=== PATIENT | male | born 1940 | race Caucasian/White ===

== ENCOUNTER 2021-10-28 16:15 | Inpatient (IN) ==
[2021-10-28 18:01] LABS: Basophils # 0.1 K/mcL (0.0-0.2); Basophils % 0.3 %; Hematocrit 52.3 % (37.5-50.1); Hemoglobin 17.4 g/dL (12.9-16.9); Immature Granulocytes % 1.2 % (0-4); Lymphocytes % 3.3 %; Mean Corpuscular HGB Conc 33.3 g/dL (31.6-35.5); Mean Corpuscular Hemoglobin 32.2 pg (28.0-33.3); Mean Corpuscular Volume 96.9 fL (83.0-100.0); Mean Platelet Volume 10.6 fL (9.4-12.4); Monocytes # 1.9 K/mcL (0.0-1.3); Monocytes % 8.5 %; Neutrophils # 19.4 K/mcL (1.6-8.9); Platelet Count 190 K/mcL (140-400); Red Cell Distribution Width 14.4 % (11.5-14.5); Segmented Neutrophils % 86.7 %; White Blood Count 22.4 K/mcL (4.3-11.1)
[2021-10-28 18:09] LABS: INR 1.3
[2021-10-28 18:10] LABS: Lymphocytes # 0.7 K/mcL (0.6-4.6)
[2021-10-28 18:23] LABS: Alanine Aminotransferase 17 Units/L (7-52); Albumin 3.2 g/dL (3.5-5.7); Alkaline Phosphatase 81 Units/L (34-104); Aspartate Amino Transferase 21 Units/L (13-39); BUN/Creatinine Ratio 38 (6-26); Blood Urea Nitrogen 38 mg/dL (8-23); Carbon Dioxide 24 mEq/L (23-29); Chloride 113 mEq/L (98-107); Creatine Kinase 97 Units/L (30-223); Globulin 3.1 g/dL (2.4-3.5); Glucose 129 mg/dL (70-105); Magnesium 2.5 mg/dL (1.6-2.6); Osmolality,Calculated 319 (280-300); Sodium 149 mEq/L (136-145); Total Protein 6.3 g/dL (6.4-8.9); eGFR For African Americans > 60 (> 60); eGFR For Non-African Americans > 60 (> 60)
[2021-10-28 18:25] LABS: Troponin I 0.11 ng/mL (< 0.04)
[2021-10-28] MEDS ORDERED: Iopamidol - 370 500 ML MLS IVP ONE (18:26)
[2021-10-28] MEDS ORDERED: Piperacillin/Tazobactam 3.375 GM in 0.9 % Sodium Chloride Mini Bag 100 ML IVPB ONE (18:46)
[2021-10-28] MEDS ORDERED: Vancomycin Oral Soln 125 MG/2.5 ML UDC PO ONE (18:46)
[2021-10-28 18:50] LABS: Platelet Estimate Normal (Normal)
[2021-10-28 19:10] LABS: Bacteria,Urine Few per hpf (None-Few); Bilirubin,Urine Negative (Negative); Blood,Urine Negative (Negative); Clarity,Urine Clear (Clear); Color,Urine Yellow (Yellow); Glucose,Urine (UA) Normal (Normal); Hyaline Casts,Urine Few per lpf (None Seen); Ketones,Urine 20 mg/dL (Negative); Leukocyte Esterase,Urine Negative (Negative); Mucus,Urine Few per lpf (None-Few); Nitrite,Urine Negative (Negative); Protein,Urine 70 mg/dL (Neg-Trace); Specific Gravity,Urine > 1.030 (1.010-1.025); Squamous Epithelial Cell,Urine Few per hpf (None-Few); Urobilinogen,Urine Normal (Normal)
[2021-10-28] MEDS ORDERED: 0.9 % Sodium Chloride 500 ML IVC PRN (21:19)
[2021-10-28] MEDS ORDERED: 0.9 % Sodium Chloride 1,000 ML IVC ONE (21:19)
[2021-10-28] MEDS ORDERED: Acetaminophen 325 MG TABLET PO PRN (22:31)
[2021-10-28] MEDS ORDERED: Naloxone 0.4 MG/ML INJ IVP PRN (22:31)
[2021-10-28] MEDS ORDERED: Ondansetron 4 MG/2 ML VIAL IVP PRN (22:31)
[2021-10-28] MEDS: Vancomycin Oral Soln 125 MG/2.5 ML UDC PO SCH (23:52)
[2021-10-29] MEDS ORDERED: Piperacillin/Tazobactam 3.375 GM in 0.9 % Sodium Chloride Mini Bag 100 ML IVPB SCH
[2021-10-29 02:53] LABS: Basophils # 0.1 K/mcL (0.0-0.2); Basophils % 0.4 %; Eosinophils % 0.1 %; Hematocrit 48.4 % (37.5-50.1); Lymphocytes # 0.8 K/mcL (0.6-4.6); Lymphocytes % 3.8 %; Mean Corpuscular HGB Conc 32.6 g/dL (31.6-35.5); Mean Corpuscular Hemoglobin 31.7 pg (28.0-33.3); Mean Platelet Volume 10.7 fL (9.4-12.4); Monocytes # 1.7 K/mcL (0.0-1.3); Monocytes % 8.5 %; Neutrophils # 17.1 K/mcL (1.6-8.9); Platelet Count 204 K/mcL (140-400); Red Blood Count 4.99 M/mcL (4.19-5.50); Red Cell Distribution Width 14.3 % (11.5-14.5); Segmented Neutrophils % 86.2 %; White Blood Count 19.8 K/mcL (4.3-11.1)
[2021-10-29 02:55] LABS: Hemoglobin 15.8 g/dL (12.9-16.9)
[2021-10-29 03:02] LABS: INR 1.3; Prothrombin Time 14.1 Seconds (9.4-12.1)
[2021-10-29 03:22] LABS: Adenovirus F 40/41 PCR Not detected (Not detect); Astrovirus PCR Not detected (Not detect); C.difficile Toxin A/B Gene PCR DETECTED (Not detect); Campylobacter by PCR Not detected (Not detect); Cryptosporidium by PCR Not detected (Not detect); Cyclospora cayetanensis PCR Not detected (Not detect); Entamoeba histolytica PCR Not detected (Not detect); Enteroaggregative E.coli(EAEC) Not detected (Not detect); Enteropathogenic E.coli(EPEC) Not detected (Not detect); Enterotoxigenic E.coli (ETEC) Not detected (Not detect); Giardia lamblia PCR Not detected (Not detect); Norovirus GI/GII PCR Not detected (Not detect); Plesiomonas shigelloides PCR Not detected (Not detect); Rotavirus A PCR Not detected (Not detect); Salmonella PCR Not detected (Not detect); Sapovirus PCR Not detected (Not detect); Shig/EnteroinvasiveE coli EIEC Not detected (Not detect); Shigalike tox-prod E coli STEC Not detected (Not detect); Vibrio PCR Not detected (Not detect); Vibrio cholerae PCR Not detected (Not detect); Yersinia enterocolitica PCR Not detected (Not detect)
[2021-10-29 03:59] LABS: BUN/Creatinine Ratio 37 (6-26); Blood Urea Nitrogen 32 mg/dL (8-23); Calcium 8.2 mg/dL (8.6-10.3); Carbon Dioxide 16 mEq/L (23-29); Chloride 117 mEq/L (98-107); Glucose 102 mg/dL (70-105); Magnesium 2.2 mg/dL (1.6-2.6); Osmolality,Calculated 313 (280-300); Potassium 4.3 mEq/L (3.5-5.1); Sodium 148 mEq/L (136-145); Thyroid Stimulating Hormone 0.144 mcIU/mL (0.340-5.600); eGFR For African Americans > 60 (> 60); eGFR For Non-African Americans > 60 (> 60)
[2021-10-29 04:08] LABS: Platelet Estimate Normal (Normal)
[2021-10-29] MEDS: *HR* Enoxaparin 40 MG/0.4 ML SYRINGE SQ SCH (05:35)
[2021-10-29] MEDS ORDERED: Haloperidol Lactate 5 MG/ML VIAL IVP ONE ×2 (05:56→17:10)
[2021-10-29] MEDS: Vancomycin Oral Soln 125 MG/2.5 ML UDC PO SCH ×4 (09:56→20:40)
[2021-10-29] MEDS ORDERED: 0.9 % Sodium Chloride 1,000 ML IVC SCH (10:00)
[2021-10-29] MEDS: D5% in Water 1,000 ML IVC SCH (17:08)
[2021-10-30] MEDS: D5% in Water 1,000 ML IVC SCH (02:35)
[2021-10-30] MEDS: *HR* Enoxaparin 40 MG/0.4 ML SYRINGE SQ SCH (05:52)
[2021-10-30 06:04] LABS: Basophils % 0.4 %; Eosinophils % 0.2 %; Hematocrit 42.9 % (37.5-50.1); Hemoglobin 14.2 g/dL (12.9-16.9); Immature Granulocytes % 0.8 % (0-4); Lymphocytes % 9.7 %; Mean Corpuscular HGB Conc 33.1 g/dL (31.6-35.5); Mean Corpuscular Hemoglobin 31.9 pg (28.0-33.3); Mean Corpuscular Volume 96.4 fL (83.0-100.0); Mean Platelet Volume 10.6 fL (9.4-12.4); Monocytes # 1.2 K/mcL (0.0-1.3); Monocytes % 11.4 %; Platelet Count 186 K/mcL (140-400); Red Blood Count 4.45 M/mcL (4.19-5.50); Red Cell Distribution Width 14.2 % (11.5-14.5); Segmented Neutrophils % 77.5 %; White Blood Count 10.3 K/mcL (4.3-11.1)
[2021-10-30 06:35] LABS: BUN/Creatinine Ratio 27 (6-26); Blood Urea Nitrogen 21 mg/dL (8-23); Calcium 7.8 mg/dL (8.6-10.3); Carbon Dioxide 23 mEq/L (23-29); Chloride 120 mEq/L (98-107); Glucose 157 mg/dL (70-105); Magnesium 2.1 mg/dL (1.6-2.6); Osmolality,Calculated 312 (280-300); Phosphorous 1.8 mg/dL (2.7-4.5); Potassium 3.2 mEq/L (3.5-5.1); Sodium 148 mEq/L (136-145); eGFR For African Americans > 60 (> 60); eGFR For Non-African Americans > 60 (> 60)
[2021-10-30] MEDS: Potassium Chloride Elixir 20 MEQ/15 ML UDC PO SCH ×2 (08:14→11:33)
[2021-10-30] MEDS: Vancomycin Oral Soln 125 MG/2.5 ML UDC PO SCH ×4 (08:15→21:29)
[2021-10-30] MEDS ORDERED: Potassium Phosphate 44 MEQ in 0.9 % Sodium Chloride 250 ML IVPB ONE (08:49)
[2021-10-30] MEDS: Haloperidol Lactate 5 MG/ML VIAL IVP PRN ×2 (12:27→18:14)
[2021-10-31] MEDS: D5% in Water 1,000 ML IVC SCH ×3 (04:19→14:19)
[2021-10-31] MEDS: *HR* Enoxaparin 40 MG/0.4 ML SYRINGE SQ SCH (05:58)
[2021-10-31] MEDS: Haloperidol Lactate 5 MG/ML VIAL IVP PRN ×2 (06:59→13:23)
[2021-10-31 07:01] LABS: Eosinophils % 0.9 %; Hemoglobin 13.8 g/dL (12.9-16.9); Mean Platelet Volume 11.1 fL (9.4-12.4)
[2021-10-31 07:03] LABS: Basophils % 0.5 %; Eosinophils # 0.1 K/mcL (0.0-0.6); Hematocrit 42.2 % (37.5-50.1); Immature Granulocytes % 1.3 % (0-4); Immature Platelets 5.8 % (1.1-6.1); Lymphocytes # 1.3 K/mcL (0.6-4.6); Lymphocytes % 20.3 %; Mean Corpuscular HGB Conc 32.7 g/dL (31.6-35.5); Mean Corpuscular Hemoglobin 32.1 pg (28.0-33.3); Mean Corpuscular Volume 98.1 fL (83.0-100.0); Monocytes # 0.9 K/mcL (0.0-1.3); Monocytes % 13.3 %; Neutrophils # 4.1 K/mcL (1.6-8.9); Platelet Count 176 K/mcL (140-400); Red Cell Distribution Width 14.2 % (11.5-14.5); Segmented Neutrophils % 63.7 %; White Blood Count 6.4 K/mcL (4.3-11.1)
[2021-10-31 07:21] LABS: BUN/Creatinine Ratio 21 (6-26); Blood Urea Nitrogen 15 mg/dL (8-23); Calcium 6.7 mg/dL (8.6-10.3); Carbon Dioxide 25 mEq/L (23-29); Chloride 114 mEq/L (98-107); Glucose 117 mg/dL (70-105); Osmolality,Calculated 300 (280-300); Phosphorous 2.3 mg/dL (2.7-4.5); Potassium 3.4 mEq/L (3.5-5.1); Sodium 144 mEq/L (136-145); eGFR For African Americans > 60 (> 60); eGFR For Non-African Americans > 60 (> 60)
[2021-10-31] MEDS ORDERED: Potassium Phosphate 44 MEQ in 0.9 % Sodium Chloride 250 ML IVPB ONE (07:51)
[2021-10-31] MEDS ORDERED: Calcium Gluconate 1gm/50mL 1 GM/50 ML BAG IVPB ONE (07:52)
[2021-10-31] MEDS: Vancomycin Oral Soln 125 MG/2.5 ML UDC PO SCH ×4 (08:11→21:41)
[2021-10-31] MEDS: OLANZapine 10 MG TAB.RAPDIS PO SCH (21:40)
[2021-11-01] MEDS: D5% in Water 1,000 ML IVC SCH ×3 (00:15→21:28)
[2021-11-01] MEDS: *HR* Enoxaparin 40 MG/0.4 ML SYRINGE SQ SCH (05:36)
[2021-11-01 05:42] LABS: Basophils # 0.1 K/mcL (0.0-0.2); Basophils % 0.7 %; Eosinophils # 0.1 K/mcL (0.0-0.6); Eosinophils % 1.3 %; Hematocrit 42.1 % (37.5-50.1); Hemoglobin 14.1 g/dL (12.9-16.9); Immature Granulocytes % 1.3 % (0-4); Lymphocytes # 1.3 K/mcL (0.6-4.6); Lymphocytes % 17.2 %; Mean Corpuscular HGB Conc 33.5 g/dL (31.6-35.5); Mean Corpuscular Volume 95.5 fL (83.0-100.0); Mean Platelet Volume 10.8 fL (9.4-12.4); Monocytes % 13.9 %; Neutrophils # 4.9 K/mcL (1.6-8.9); Platelet Count 178 K/mcL (140-400); Red Blood Count 4.41 M/mcL (4.19-5.50); Red Cell Distribution Width 13.7 % (11.5-14.5); Segmented Neutrophils % 65.6 %; White Blood Count 7.5 K/mcL (4.3-11.1)
[2021-11-01 05:57] LABS: BUN/Creatinine Ratio 18 (6-26); Blood Urea Nitrogen 11 mg/dL (8-23); Calcium 7.6 mg/dL (8.6-10.3); Carbon Dioxide 24 mEq/L (23-29); Chloride 109 mEq/L (98-107); Glucose 105 mg/dL (70-105); Magnesium 1.9 mg/dL (1.6-2.6); Osmolality,Calculated 288 (280-300); Phosphorous 2.2 mg/dL (2.7-4.5); Potassium 3.4 mEq/L (3.5-5.1); Sodium 139 mEq/L (136-145); eGFR For African Americans > 60 (> 60); eGFR For Non-African Americans > 60 (> 60)
[2021-11-01] MEDS: Haloperidol Lactate 5 MG/ML VIAL IVP PRN (08:16)
[2021-11-01] MEDS: Vancomycin Oral Soln 125 MG/2.5 ML UDC PO SCH ×5 (10:29→21:28)
[2021-11-01] MEDS: Morphine Sulfate Oral CONC 10 MG/0.5 ML ORAL.SYG SL PRN ×2 (14:38→21:27)
[2021-11-01] MEDS: OLANZapine 10 MG TAB.RAPDIS PO SCH (21:28)
[2021-11-02] MEDS: *HR* Enoxaparin 40 MG/0.4 ML SYRINGE SQ SCH (05:31)
[2021-11-02] MEDS: D5% in Water 1,000 ML IVC SCH ×2 (05:31→08:01)
[2021-11-02] MEDS: Vancomycin Oral Soln 125 MG/2.5 ML UDC PO SCH ×3 (08:03→13:37)
[2021-11-02] MEDS: Morphine Sulfate Oral CONC 10 MG/0.5 ML ORAL.SYG SL PRN ×4 (09:27→22:19)
[2021-11-02] MEDS: *HR* LORazepam Oral Conc 2 MG/ML SL PRN ×2 (11:45→17:54)
[2021-11-02] MEDS: OLANZapine 10 MG TAB.RAPDIS PO SCH (22:19)
[2021-11-03] MEDS: *HR* LORazepam Oral Conc 2 MG/ML SL PRN (01:35)
[2021-11-03] MEDS: Morphine Sulfate Oral CONC 10 MG/0.5 ML ORAL.SYG SL PRN ×2 (02:38→06:38)
[2021-11-03] MEDS ORDERED: Morphine Sulfate 2 MG/ML SYRINGE IVP ONE (02:52)
[2021-11-03] MEDS ORDERED: *HR* LORazepam Oral Conc 2 MG/ML SL ONE (03:37)
[2021-11-03] MEDS: Nystatin POWDER 30 GM BOTTLE TP SCH ×4 (04:07→20:23)
[2021-11-03] MEDS: Atropine Sulfate 1% 40 DROP/2 ML BOTTLE SL PRN ×3 (05:42→14:58)
[2021-11-03] MEDS: Morphine Sulfate 2 MG/ML SYRINGE IVP PRN ×6 (07:53→22:20)
[2021-11-03] MEDS: *HR* LORazepam 2 MG/ML VIAL IVP PRN ×3 (07:55→22:35)
[2021-11-03] MEDS: Acetaminophen IV 1,000 MG/100 ML BAG IVPB SCH ×2 (09:55→17:27)
[2021-11-03] MEDS: OLANZapine 10 MG TAB.RAPDIS PO SCH (20:23)
[2021-11-03] MEDS ORDERED: *HR* LORazepam 2 MG/ML VIAL IVP ONE (22:56)
[2021-11-04] MEDS: Acetaminophen IV 1,000 MG/100 ML BAG IVPB SCH (00:17)
[2021-11-04] MEDS: Morphine Sulfate 2 MG/ML SYRINGE IVP PRN ×7 (00:20→13:07)
[2021-11-04] MEDS ORDERED: Haloperidol Lactate 5 MG/ML VIAL IVP ONE (00:26)
[2021-11-04 03:45] VITALS: BP 82/45; PULSE 97; TEMP 98.7; O2SAT 86
[2021-11-04] MEDS: *HR* LORazepam 2 MG/ML VIAL IVP PRN ×3 (04:21→13:07)
[2021-11-04] MEDS: Nystatin POWDER 30 GM BOTTLE TP SCH (07:30)
[2021-11-04] MEDS: Atropine Sulfate 1% 40 DROP/2 ML BOTTLE SL PRN ×2 (08:41→13:07)
== END 2021-11-04 13:23 | disposition hospice, inpatient (51) | DRG 871 ==
LOC: 3NENU 16:15 → EMEROOARM 16:15 → 3NENU 22:26 → SUATTDRO 22:31 → 2ANU 11-02 11:37
PROVIDERS: ADMIT Student in an Organized Health Care Education/Training Program; ATTEND Pharmacist

== ENCOUNTER 2021-11-04 10:07 | Inpatient (IN) ==
[2021-11-04] MEDS ORDERED: Ondansetron 4 MG/2 ML VIAL IVP PRN (11:36)
[2021-11-04] MEDS ORDERED: Bisacodyl 10 MG RECTAL SUPPOSITORY RC PRN (11:36)
[2021-11-04] MEDS: *HR* LORazepam 2 MG/ML VIAL IVP PRN ×2 (15:05→20:17)
[2021-11-04] MEDS: Morphine Sulfate 2 MG/ML SYRINGE IVP PRN ×4 (15:06→22:21)
[2021-11-04] MEDS: Haloperidol Lactate 5 MG/ML VIAL IVP PRN (17:37)
[2021-11-04] MEDS: Atropine Sulfate 1% 40 DROP/2 ML BOTTLE SL PRN ×2 (20:17→22:23)
[2021-11-04] MEDS: Nystatin POWDER 30 GM BOTTLE TP SCH (20:59)
[2021-11-05] MEDS: Morphine Sulfate 2 MG/ML SYRINGE IVP PRN ×12 (00:24→23:19)
[2021-11-05] MEDS: *HR* LORazepam 2 MG/ML VIAL IVP PRN ×6 (00:25→20:49)
[2021-11-05] MEDS: Atropine Sulfate 1% 40 DROP/2 ML BOTTLE SL PRN ×7 (00:25→23:22)
[2021-11-05] MEDS: Nystatin POWDER 30 GM BOTTLE TP SCH ×2 (08:35→23:18)
[2021-11-06] MEDS: *HR* LORazepam 2 MG/ML VIAL IVP PRN ×6 (01:39→22:35)
[2021-11-06] MEDS: Morphine Sulfate 2 MG/ML SYRINGE IVP PRN ×10 (01:39→23:24)
[2021-11-06] MEDS: Atropine Sulfate 1% 40 DROP/2 ML BOTTLE SL PRN ×5 (01:40→20:52)
[2021-11-06] MEDS: Nystatin POWDER 30 GM BOTTLE TP SCH ×2 (09:00→20:56)
[2021-11-06] MEDS ORDERED: Scopolamine Patch 1.5 MG PATCH.TD72 TD SCH (09:30)
[2021-11-06] MEDS ORDERED: Acetaminophen 650 MG RECTAL SUPP RC PRN (09:30)
[2021-11-06] MEDS ORDERED: *HR* FentaNYL PATCH 25 MCG PATCH TD SCH (09:45)
[2021-11-06] MEDS: Haloperidol Lactate 5 MG/ML VIAL IVP PRN (12:11)
[2021-11-06 19:18] VITALS: BP 107/64; PULSE 127; TEMP 100.9; O2SAT 75
[2021-11-07] MEDS: Morphine Sulfate 2 MG/ML SYRINGE IVP PRN (01:39)
[2021-11-07] MEDS ORDERED: Morphine Sulfate 2 MG/ML SYRINGE IVP ONE (01:55)
[2021-11-07] MEDS ORDERED: Morphine Sulfate 2 MG/ML SYRINGE IVP PRN (01:57)
== END 2021-11-07 02:03 | disposition expired | DRG 951 ==
LOC: 2ANU 13:36
PROVIDERS: ADMIT Internal Medicine Hospice and Palliative Medicine; ATTEND Internal Medicine Hospice and Palliative Medicine